=== PATIENT | male | born 1985 | race African-American/Black ===

== ENCOUNTER 2024-03-27 13:38 | Outpatient (REF) | payer MEDICAID, SELFPAY ==
[2024-03-27 14:14] LABS: MANUAL DIFF FLAG NO
[2024-03-27 14:27] LABS: Basophils Percent Auto 0.7 % (0-2); Hematocrit 45.2 % (42.0-52.0); Hemoglobin 14.3 g/dl (14.0-18.0); Imm Gran Abs Auto 0.01 X10*3/uL (0.00-0.03); Imm Gran Pct Auto 0.2 % (0.0-0.4); Lymphocytes Percent Auto 24.6 % (20-40); Mean Corpuscular HGB Conc 31.6 g/dl (31.0-36.0); Mean Corpuscular Hemoglobin 27.1 pg (27.0-33.0); Mean Corpuscular Volume 85.8 fL (80.0-98.0); Monocytes Absolute Auto 0.8 X10*3/uL (0.1-1.2); Monocytes Percent Auto 18.8 % (2-11); Neutrophils Absolute Auto 2.3 x10*3/uL (2.0-8.3); Neutrophils Percent Auto 54.7 % (45-73); Platelet Count 247 X10*3/uL (160-400); Red Blood Count 5.27 X10*6/uL (4.60-5.80); Red Cell Distribution Width 14.1 % (11.0-16.0); White Blood Count 4.2 X10*3/uL (4.8-10.8)
--- OUTSIDE RECORDS SUMMARY | 2024-03-27 14:39 | XMS_ITS | Encounter Summary ---
Author Organization [employer] Address [address] [facility] 7[address] [place] [address] Care Team Providers Care Nanoelectronics Engineer Name Role Phone Sam Palm MD Primary Care Prov ider Reason for Visit * Reason Onset Date Comments Appointment Request 05/12/2023 Encounter Details Date Type Department Care Team (Late st Contact Info) Description 05/12/2023 Telephone [facility] [address] [place] [address] Sam Palm MD [address] [place] [phone] Appointment Request Social History Tobacco Use Types Packs/Day Years Used Date Smoking Tobacco: Never Smokeless Tobacco: Never Depression Answer Date Recorded Patient Health Questionnaire-9 Score 0 04/11/2023 Patient Health Questionnaire-9 Score 0 04/11/2023 Last PHQ-9: Questionnaire Data Not on file 0 04/11/2023 Housing Stability Answer Date Recorded What is your housing situation today? I have david benedict 04/11/[address] you li ve. Do you have problems with any of the following? None of the above 04/11/2023 Food Insecurity Answer Date Recorded Within the past 12 months, y ou worried that your food would run out before you got money to buy more: Never True 04/11/2023 Within the past 12 months,th e food you bought just didn't last and you didn't have enough money to get more: Never True 05/2023 Transportation Answer Date Recorded In the past 12 months, has l ack of transportation kept you from medical appts, meetings, work or from getting things needed for daily living? No 04/11/2023 Utilities Answer Date Recorded In the past 12 months, has t he electric, gas, oil or water company threatened to shut off services in your home? No 04/11/2023 Depression Answer Date Recorded Patient Health Questionnaire-2 Score 0 04/11/2023 Sex and Gender Information Value Date Recorded Sex Assigned at Male 12/07/2021 10:26 AM EDT Legal Sex Male 10:26 AM EDT Gender Identity Male 12/07/2021 10:26 AM EDT Sexual Orientation Straight 12/07/2021 10 :26 AM EDT documented as of this encounter Miscellaneous Notes * Telephone Encounter - Anuel Rosario - 05/12/2023 11:50 AM EDT Tc from patient calling to cancel appt for 05/17 and would like a call back to reschedule documented in this encounter Plan of Treatment Upcoming Encounters Date Type Department Care Team (Late st Contact Info) Description 04/24/2024 3:00 PM EDT Clinical Support [facility] [address] [place] [address] documented as of this encounter Visit Diagnoses Not on filedocumented in this encounter Additional Health Concerns Assessment Noted Time PHQ-9 Depression Total Score: 0 04/11/19 24 9:27 AM EST documented as of this encounter Care Teams Nanoelectronics Engineer Relationship Specialty Start Date End Date Sam Palm MD [address] [place] [address] PCP - General Internal Medicine 06/26/19 documented as of this encounter
--- OUTSIDE RECORDS SUMMARY | 2024-03-27 14:39 | XMS_ITS | Clinical Summary ---
Author Organization [employer] Address [address] [facility] 7t [place] [address] Care Team Providers Care Data Entry Technician Name Role Phone Sam Palm MD Primary Care Prov ider Allergies No known active allergies Medications cyclobenzaprine (Flexeril) 10 MG tablet Take 1 tablet (10 mg) by mouth 3 times daily for 10 days. 30 tablet 4 Active triamcinolone (Kenalog) 0.025 % ointment Apply topically 2 times daily. 30 g 11 4 Active losartan (Cozaar) 50 MG tablet Take 1 tablet (50 mg) by mouth in the morning. 90 tablet 3 4 06/28/19 25 Active ibuprofen 600 MG tablet Take 1 tablet (600 mg) by mouth every 8 (eight) hours if needed for mild pain. 90 tablet 4 Active oseltamivir (Tamiflu) 75 MG capsuleIndicati ons:Influenza B Take 1 capsule (75 mg) by mouth 2 times daily for 5 days. 10 capsule 5 04/01/19 25 Active Active Problems Problem Noted Date Diagnosed Date Benign essential hypertension 01/05/2018 Assessment & Plan (10/04/2023 3:09 PM EDT): Controlled, no changes will be made, keep low sodium diet and exercise as tolerated, told to get blood work previously ordered, will follow up in 4 months Assessment & Plan (06/29/2023 9:28 AM EDT): Controlled, continue low sodium diet and exercise as tolerated, follow up in 4 months Eczema 01/05/2018 Encounters Date Type Department Care Team Description 03/27/2024 1:00 PM EST Office Visit [facility] [address] [place] [address] Bekah Ritter MD Influenza B (Primary Dx); Benign essential hypertension; Other fatigue 03/27/2024 Travel 03/27/2024 Telephone [facility] [address] [place] [address] Sam Palm MD Nurse Triage 01/09/2024 Refill [facility] [address] [place] [address] Sam Palm MD from Last 3 Months Immunizations Name Administration Dates Next Due Influenza injectable quadriv alent IIV4 with preservative 03/15/2017 Influenza injectable quadriv alent preservative free 04/09/2016,05/09/2015 Influenza, IIV3, injectable 11/28/2013,1 02/19/2012,01/17/2012,2010,12/03/2009 Pfizer Covid-19 Vaccine 12+ 02/12/2021,,05/07/2020 Pfizer Covid-19 Vaccine 12+ Bivalent 02/02/2022 TD (adult), 2 Lf tetanus tox oid, preservative free, adsorbed 11/24/2010 Tdap 07/16/2016 Social History Tobacco Use Types Packs/Day Years Used Date Smoking Tobacco: Never Smokeless Tobacco: Never Tobacco Cessation:Counseling Given: Not Answered Alcohol Use Standard Drinks/Week Comments Never 0 (1 standard drink = 0.6 oz pur e alcohol) Depression Answer Date Recorded Patient Health Questionnaire-9 [...] Orientation Straight 12/07/2021 10 :26 AM EDT Last Filed Vital Signs Vital Sign Reading Time Taken Comments Blood Pressure 146/96 03/27/2024 12:45 PM EST Pulse 88 03/27/2024 12:45 PM EST Temperature 36.9 ??C (98.4 ??F) 03/27/2024 12:[address] Respiratory Rate 20 03/27/2024 12:45 PM EST Oxygen Saturation 98% 03/27/2024 12:45 PM EST Inhaled Oxygen Concentration - - Weight 128 kg (282 lb 6.4 oz) 03/27/2024 12:45 P M EST Height 175.3 cm (5' 9 ) 03/27/2024 12:45 PM EST Body Mass Index 41.7 03/27/2024 12:45 PM EST Plan of Treatment Upcoming Encounters Date Type Department Care Team (Late st Contact Info) Description 04/24/2024 3:00 PM EDT Clinical Support [facility] [address] [facility] [place] [address] Health Maintenance Due Date Last Done Comments HIV Screening 1987 Lipid Panel 1987 Alcohol/Substance Use Screening 1999 Family Planning (PISQ) 2002 Hepatitis C Screening 2005 Hepatitis B Vaccines (1 of 3 - 19+ 3-dose series) 2006 COVID-19 Vaccine ( season) 2023 02/02/2022, 02/12/2021, 05/29/2020, Additional history exists Influenza Vaccine (#1) 2023 8, 04/09/2016, 05/09/2015, Additional history exists Depression Screening 04/10/2024 04/11/2023, 04/11/19 24 SDOH Screening 04/10/2024 04/11/2023 Tobacco Screening 03/27/2025 03/27/2024 DTaP/Tdap/Td Vaccines (2 - Td or Tdap) 07/16/2026 07/16/2016, 11/24/2010, 11/24/2010 Zoster Vaccines (1 of 2) 2037 RSV Patients and Patients Aged 60 years or older (1 - 1-dose 75+ series) 2062 HIB Vaccines Aged Out No longer eligi ble based on patient's age to complete this topic HPV Vaccines Aged Out No longer eligi ble based on patient's age to complete this topic Hepatitis A Vaccines Aged Out No long er eligible based on patient's age to complete this topic IPV Vaccines Aged Out No longer eligi ble based on patient's age to complete this topic Meningococcal Vaccine Aged Out No ailyn cortez eligible based on patient's age to complete this topic Pneumococcal Vaccine: Pediatrics (0 to 5 Years) and At-Risk Patients (6 to 49) Years) Aged Out No longer eligible based on patient's age to complete this topic RSV under 20 months Aged Out No longe r eligible based on patient's age to complete this topic Rotavirus Vaccines Aged Out No longer eligible based on patient's age to complete this topic Procedures Procedure Name Priority Date/Time Associated Diagnosis Comments CBC WITH AUTO DIFFERENTIAL Routine 03/27/2024 1:44 PM EST Benign essential hypertension Other fatigue POCT RAPID STREP A Routine 03/27/2024 1: 16 PM EST Influenza B Benign essential hypertension Other fatigue POCT INFLUENZA B Routine 03/27/2024 1:15 PM EST Influenza B Benign essential hypertension Other fatigue POCT INFLUENZA A Routine 03/27/2024 1:15 PM EST Influenza B Benign essential hypertension Other fatigue POCT COVID-19 AG QUICK ID NOW Routine 03/27/2024 1:14 PM EST Influenza B Benign essential hypertension Other fatigue from Last 3 Months Results * (ABNORMAL) CBC auto differential (03/27/2024 1:44 PM EST) White Blood Count 4.2(L) 4.8 - 10.8 X10*3/uL [facility] Red Blood Count 5.27 4.60 - 5.80 X10*6/uL [facility] Hemoglobin 14.3 14.0 - 18.0 g/dl [facility] Hematocrit 45.2 42.0 - 52.0 % [facility] Mean Corpuscular Volume 85.8 80.0 - 98.0 fL [facility] Mean Corpuscular Hemoglobin 27.1 27.0 - 33.0 pg [facility] Mean Corpuscular HGB Conc 31.6 31.0 - 36.0 g/dl [facility] Red Cell Distribution Width 14.1 11.0 - 16.0 % [facility] Platelet Count 247 160 - 400 X10*3/uL [facility] Mean Platelet Volume 10.0 9.4 - 12.4 fL [facility] Neutrophils Percent Auto 54.7 45 - 73 % [facility] Imm Gran Pct Auto 0.2 0.0 - 0.4 % [facility] Lymphocytes Percent Auto 24.6 20 - 40 % [facility] Monocytes Percent Auto 18.8(H) 2 - 11 % [facility] Eosinophils Percent Auto 1.0 0 - 4 % [facility] Basophils Percent Auto 0.7 0 - 2 % [facility] NRBC Pct Auto 0.0 0.0 - 0.2 /100WBC [facility] Neutrophils Absolute Auto 2.3 2.0 - 8.3 x10*3/uL [facility] Imm Gran Abs Auto 0.01 0.00 - 0.03 X10*3/uL [facility] Lymphocytes Absolute Auto 1.0(L) 1.2 - 4.9 X10*3/uL [facility] Monocytes Absolute Auto 0.8 0.1 - 1.2 X10*3/uL [facility] Eosinophils Absolute Auto 0.0 0.0 - 0.4 X10*3/uL [facility] Basophils Absolute Auto 0.0 0.0 - 0.2 X10*3/uL [facility] NRBC Abs Auto 0.000 0.0 - 0.012 X10*3/uL [facility] Blood Venous blood specimen / Unknown 03/27/2024 1:44 PM EST 03/27/2024 2:12 PM EST Result [facility] Bekah Ritter MD LAB BLOOD ORDERABLES Final Result Performing Organization Address City/State/[facility] Co de Phone Number [facility] [address] [place] [phone] * POCT Rapid Strep A OSOM (03/27/2024 1:16 PM EST) Pathologist [facility] Rapid Strep A Screen Negative Negative, None Detected QC Media Lot # [id number] Lot# Expiration Date Swab 03/27/2024 1:16 PM EST Result [facility] Bekah Ritter MD POINT OF CARE TEST ENTER/ED IT ORDERABLES Final Result * (ABNORMAL) POCT Rapid Influenza B OSOM (03/27/2024 1:15 PM EST) Rapid Influenza B Ag Positive( A) Negative, Indeterminate QC Media Lot # [id number] Lot# Expiration Date , Swab 03/27/2024 1:15 PM EST Bekah Ritter MD POINT OF CARE TEST ENTER/ED IT ORDERABLES Final Result * POCT Rapid Influenza A OSOM (03/27/2024 1:15 PM EST) Pathologist [facility] Rapid Influenza A Ag Negative Negative, Indeterminate QC Media Lot # [id number] Lot# Expiration Date [id number] Swab Nasopharyngeal structure / Unknown 03/27/2024 1:15 PM EST Bekah Ritter MD POINT OF CARE TEST ENTER/ED IT ORDERABLES Final Result * POCT Rapid Covid-19 QUICK ID NOW (03/27/2024 1:14 PM EST) [facility] Coronavirus Antigen PCR Negative Negative, Indeterminate, None Detected, Invalid, Specimen unsatisfactory for evaluation, Weakly Positive QC Media Lot # [id number] Lot# Expiration Date [id number] Swab 03/27/2024 1:14 PM EST Bekah Ritter MD POINT OF CARE TEST ENTER/ED IT ORDERABLES Final Result from Last 3 Months Insurance # [address] [place] [address] [facility] [address] [place] [address] # [address] [place] [address] [address] [place] [address] Care Teams Data Entry Technician Relationship Specialty Start Date End Date Sam Palm MD [address] [place] [phone] PCP - General Internal Medicine 06/26/19
--- OUTSIDE RECORDS SUMMARY | 2024-03-27 14:39 | XMS_ITS | Encounter Summary ---
Author Organization [employer] Address [address] [facility] 7t [place] [address] Care Team Providers Care Senior Manager [employer] Name Role Phone Sam Palm MD Primary Care Prov ider Reason for Visit * Reason Comments Cough Fatigue Encounter Details Date Type Department Care Team ([facility] st Contact Info) Description 03/27/2024 1:00 PM EST Office Visit [facility] [address] [place] [address] Bekah Ritter MD [address] [place] [address] Influenza B (Primary Dx); Benign essential hypertension; Other fatigue Social History Tobacco Use Types Packs/Day Years Used Date Smoking Tobacco: Never Smokeless Tobacco: Never Alcohol Use Standard Drinks/Week Comments Never 0 [...] AM EDT documented as of this encounter Last Filed Vital Signs Vital Sign Reading [...] Mass Index 41.7 03/27/2024 12:45 PM EST documented in this encounter Progress Notes * Bekah Ritter MD - 03/27/2024 1:00 PM EST Subjective Patient ID: Armen [place] is a 39 y.o. male who presents for Cough and Fatigue. Cough This is a new problem. The current episode started in the past 7 days. The cough is Non-productive.Pertinent negatives include no shortness of breath. Fatigue Associated symptoms include coughing and fatigue. 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 C/o cough x the last 4 days. No fever. Denies body aches. Also c/o fatigue for several weeks. Pt would like to check some vit Levels to assess if he need to start a MTV supplementation. Patient Active Problem List Diagnosis Benign essential hypertension Eczema ' Current Outpatient Medications on File Prior to Visit Medication Sig Dispense Refill cyclobenzaprine (Flexeril) 10 MG tablet Take 1 tablet (10 mg) by mouth 3 times daily for 10 days. 30 tablet 0 ibuprofen 600 MG tablet Take 1 tablet (600 mg) by mouth every 8 (eight) hours if needed for mild pain. 90 tablet 0 losartan (Cozaar) 50 MG tablet Take 1 tablet (50 mg) by mouth in the morning. 90 tablet 3 triamcinolone (Kenalog) 0.025 % ointment Apply topically 2 times daily. 30 g 11 No current facility-administered medications on file prior to visit. No Known Allergies Review of Systems Constitutional: Positive for fatigue. Respiratory: Positive for cough. Negative for shortness of breath. Cardiovascular: Negative for palpitations and leg swelling. Objective Physical Exam Constitutional: General: He is not in acute distress. Appearance: Normal appearance. He is obese. He is not ill-appearing, toxic- appearing or diaphoretic. HENT: Nose: Right Turbinates: Enlarged. Left Turbinates: Enlarged. Pulmonary: Effort: Pulmonary effort is normal. Breath sounds: Normal breath sounds. No stridor. No rhonchi. Neurological: General: No focal deficit present. Mental Status: He is alert. Assessment/Plan Diagnoses and all orders for this visit: Influenza B Comments: fluids, Rest, wear a mask when around people. Call the office if the sx are not resolved in 1 week. Orders: - POCT Rapid Covid-19 QUICK ID NOW - POCT Rapid Influenza A OSOM - POCT Rapid Influenza B OSOM - POCT Rapid Strep A OSOM - TSH W/Reflex to FT4; Future - Vitamin D, 25-Hydroxy, Total, Immunoassay; Future - Vitamin B12/Folate, Serum Panel; Future - oseltamivir (Tamiflu) 75 MG capsule; Take 1 capsule (75 mg) by mouth 2 times daily for 5 days. Benign essential hypertension Comments: DASH diet Same medication BP check w/ a nurse in 1 month. Orders: - POCT Rapid Covid-19 QUICK ID NOW - POCT Rapid Influenza A OSOM - POCT Rapid Influenza B OSOM - POCT Rapid Strep A OSOM - TSH W/Reflex to FT4; Future - Vitamin D, 25-Hydroxy, Total, Immunoassay; Future - Vitamin B12/Folate, Serum Panel; Future - CBC auto differential; Future - Comprehensive Metabolic Panel; Future Other fatigue Comments: Labs ordered. Pt will be contacted w/ results. Orders: - POCT Rapid Covid-19 QUICK ID NOW - POCT Rapid Influenza A OSOM - POCT Rapid Influenza B OSOM - POCT Rapid Strep A OSOM - TSH W/Reflex to FT4; Future - Vitamin D, 25-Hydroxy, Total, Immunoassay; Future - Vitamin B12/Folate, Serum Panel; Future - CBC auto differential; Future - Comprehensive Metabolic Panel; Future documented in this encounter Plan of Treatment Upcoming Encounters Date Type Department Care Team (Late st Contact Info) Description 04/24/2024 3:00 PM EDT Clinical Support [facility] [address] [place] [address] Scheduled Orders Name Type Priority Associated Diagnoses Orde r Schedule TSH W/Reflex to FT4 Lab Routine Influenza B Benign essential hypertension Other fatigue Expected: 03/27/2024 (Approximate), Expires: 03/27/2025 Vitamin D, 25-Hydroxy, Total, Immunoassay Lab Routine Influenza B Benign essential hypertension Other fatigue Expected: 03/27/2024 (Approximate), Expires: 03/27/2025 Vitamin B12/Folate, Serum Panel Lab Routine Influenza B Benign essential hypertension Other fatigue Expected: 03/27/2024, Expires: 03/27/2025 Comprehensive Metabolic Panel Lab Routine Benign essential hypertension Other fatigue Expected: 03/27/2024 (Approximate), Expires: 03/27/2025 documented as of this encounter Procedures Procedure Name Priority Date/Time Associated Diagnosis [...] Influenza B Benign essential hypertension Other fatigue documented in this encounter Results * (ABNORMAL) CBC auto differential (03/27/2024 1:44 PM EST) White Blood Count 4.2(L) 4.8 - 10.8 X10*3/uL [facility] Red Blood Count 5.27 4.60 - 5.80 X10*6/uL [facility] Hemoglobin 14.3 14.0 - 18.0 g/dl [facility] Hematocrit 45.2 42.0 - 52.0 % [facility] Mean Corpuscular Volume 85.8 80.0 - 98.0 fL [facility] Mean Corpuscular Hemoglobin 27.1 27.0 - 33.0 pg [facility] Mean Corpuscular HGB Conc 31.6 31.0 - 36.0 g/dl [facility] Red Cell Distribution Width 14.1 11.0 - 16.0 % [facility] Platelet Count 247 160 - 400 X10*3/uL [facility] Mean Platelet Volume 10.0 9.4 - 12.4 fL [facility] Neutrophils Percent Auto 54.7 45 - 73 % [facility] Imm Gran Pct Auto 0.2 0.0 - 0.4 % [facility] Lymphocytes Percent Auto 24.6 20 - 40 % [facility] Monocytes Percent Auto 18.8(H) 2 - 11 % [facility] Eosinophils Percent Auto 1.0 0 - 4 % [facility] Basophils Percent Auto 0.7 0 - 2 % [facility] NRBC Pct Auto 0.0 0.0 - 0.2 /100WBC [facility] Neutrophils Absolute Auto 2.3 2.0 - 8.3 x10*3/uL [facility] Imm Gran Abs Auto 0.01 0.00 - 0.03 X10*3/uL [facility] Lymphocytes Absolute Auto 1.0(L) 1.2 - 4.9 X10*3/uL [facility] Monocytes Absolute Auto 0.8 0.1 - 1.2 X10*3/uL [facility] Eosinophils Absolute Auto 0.0 0.0 - 0.4 X10*3/uL [facility] Basophils Absolute Auto 0.0 0.0 - 0.2 X10*3/uL [facility] NRBC Abs Auto 0.000 0.0 - 0.012 X10*3/uL [facility] Blood Venous blood specimen / Unknown 03/27/2024 1:44 PM EST 03/27/2024 2:12 PM EST Result [facility] Bekah Ritter MD LAB BLOOD ORDERABLES Final Result Performing Organization Address City/State/[facility] Co de Phone Number [facility] [address] [place] [phone] * POCT Rapid Strep A OSOM (03/27/2024 1:16 PM EST) [facility] Rapid Strep A Screen Negative Negative, None Detected QC Media Lot # [id number] Lot# Expiration Date 2, Swab 03/27/2024 1:16 PM EST Result [facility] Bekah Ritter MD POINT OF CARE TEST ENTER/ED IT ORDERABLES Final Result * (ABNORMAL) POCT Rapid Influenza B OSOM (03/27/2024 1:15 PM EST) [facility] Rapid Influenza B Ag Positive( A) Negative, Indeterminate QC Media Lot # [id number] Lot# Expiration Date [id number] Swab 03/27/2024 1:15 PM EST Result [facility] Bekah Ritter MD POINT OF CARE TEST ENTER/ED IT ORDERABLES Final Result * POCT Rapid Influenza A OSOM (03/27/2024 1:15 PM EST) [facility] Rapid Influenza A Ag Negative Negative, Indeterminate QC Media Lot # [id number] Lot# Expiration Date [id number] Swab Nasopharyngeal structure / Unknown 03/27/2024 1:15 PM EST Bekah Ritter MD POINT OF CARE TEST ENTER/ED IT ORDERABLES Final Result * POCT Rapid Covid-19 QUICK ID NOW (03/27/2024 1:14 PM EST) Coronavirus Antigen PCR Negative Negative, Indeterminate, None Detected, Invalid, Specimen unsatisfactory for evaluation, Weakly Positive QC Media Lot # [id number] Lot# Expiration Date [id number] Swab 03/27/2024 1:14 PM EST Bekah Ritter MD POINT OF CARE TEST ENTER/ED IT ORDERABLES Final Result documented in this encounter Visit Diagnoses Diagnosis Influenza B- Primary Influenza with other respiratory manifestations Benign essential hypertension Essential hypertension, benign Other fatigue documented in this encounter Additional Health Concerns Assessment Noted Time PHQ-9 Depression Total Score: 0 04/11/19 24 9:27 AM EST documented as of this encounter Care Teams Senior Manager [employer] Relationship Specialty Start Date End Date Sam [place] MD [address] [place] [phone] PCP - General Internal Medicine 06/26/19 documented as of this encounter
--- OUTSIDE RECORDS SUMMARY | 2024-03-27 14:39 | XMS_ITS | Encounter Summary ---
Author Organization [employer] Address [address] 7[address] [place] [address] Care Team Providers Care Organic Gardening Teacher Name Role Phone aSm [place] MD Primary Care Prov ider Encounter Details Date Type Department Care Team (Latest Contact Info) Description 03/27/2024 Travel Social History Tobacco Use Types Packs/Day Years [...] AM EDT documented as of this encounter Plan of Treatment Upcoming Encounters Date Type Department Care Team ([facility] st Contact Info) Description 04/24/2024 3:00 PM EDT Clinical Support [facility] [address] [place] [address] documented as of this encounter Visit Diagnoses Not on filedocumented in this encounter Additional Health Concerns Assessment Noted Time PHQ-9 Depression Total Score: 0 04/11/19 24 9:27 AM EST documented as of this encounter Care Teams Organic Gardening Teacher Relationship Specialty Start Date End Date Sam [place] MD [address] [place] [address] PCP - General Internal Medicine 06/26/19 documented as of this encounter
--- OUTSIDE RECORDS SUMMARY | 2024-03-27 14:39 | XMS_ITS | Encounter Summary ---
Author Organization [employer] Address [address] [facility] [address] [place] [address] Care Team Providers Care Assembler Garment Form Name Role Phone Sam Palm MD Primary Care Prov ider Reason for Visit * Reason Onset Date Comments Nurse Triage 03/27/2024 Encounter Details Date Type Department Care Team ([facility] st Contact Info) Description 03/27/2024 Telephone [facility] [address] [place], [place] [id number] Sam Palm MD [address] [place] [address] Nurse Triage Social History Tobacco Use Types Packs/Day Years [...] encounter Miscellaneous Notes * Telephone Encounter - Mónica Braun RN - 03/27/2024 9:24 AM EST Call returned to Armen Walker to triage below. Reports having onset of cough since x 4 weeks. Call transferred to spouse. Reports cough is productive. Pt reports using OTC meds with no relief. Subjective fever, chest congestion. Pt has not been seen at or ER for sx. No OTC COVID-19 testing. Mild intermittent wheezing. Advised of disposition, agrees to sick on site with team provider. Reviewed home care advise, ER precautions and reasons to call back. Protocol Used: Cough (Adult) Protocol-Based Disposition: Go to Office or Video Visit Now Future Appointments Date Time Provider Department Center 03/27/2024 1:00 PM Bekah Ritter MD [facility] Insurance verified as active per Real Time Eligibility in [facility]. Video visit offer not recorded Positive Triage Question: * Wheezing is present * All higher-acuity triage questions were negative Care Advice Discussed: * Reassurance and Education - Cough * Cough Medicines * Reasons To Call Back - Difficulty breathing - You become worse * Telephone Encounter - Darby Reynosonte - 03/27/2024 8:49 AM EST Symptom: Cough Outcome: Schedule an appointment to be seen within 24 hours Reason: Caller denied all higher acuity questions The caller accepted this outcome. Contact pt at [phone] documented in this encounter Plan of Treatment Upcoming Encounters Date Type Department Care Team ([facility] st Contact Info) Description 04/24/2024 3:00 PM EDT Clinical Support [facility] [address] [place] [address] documented as of this encounter Visit Diagnoses Not on filedocumented in this encounter Additional Health Concerns Assessment Noted Time PHQ-9 Depression Total Score: 0 04/11/19 24 9:27 AM EST documented as of this encounter Care Teams Assembler Garment Form Relationship Specialty Start Date End Date Sam Palm MD [address] [place] [address] PCP - General Internal Medicine 06/26/19 documented as of this encounter
--- OUTSIDE RECORDS SUMMARY | 2024-03-27 14:39 | XMS_ITS | Encounter Summary ---
Author Organization [employer] Address [address] [facility] [address] [place] [address] Care Team Providers Care Extension Service Advisor Name Role Phone Sam Palm MD Primary Care Prov ider Reason for Visit * Reason Onset Date Comments Medication Question 04/15/2023 Encounter Details Date Type Department Care Team (Late st Contact Info) Description 04/15/2023 Telephone [facility] [address] [place] [address] Sam Palm MD [address] [place] [id number] Medication Question Social History Tobacco Use Types Packs/Day Years [...] encounter Miscellaneous Notes * Telephone Encounter - Cassie Alvarez - 04/15/2023 11:34 AM EST Tc from pt requesting a new script for ibuprofen states see discussed with PCP on 04/11/23 leg pain. Ripsawyer did advised PCP sent cyclobenzaprine (Flexeril) 10 MG tablet for 10 days. 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 documented in this encounter Plan of Treatment Upcoming Encounters Date Type Department Care Team (Late st Contact Info) Description 04/24/2024 3:00 PM EDT Clinical Support [facility] [address] [place] [address] documented as of this encounter Visit Diagnoses Not on filedocumented in this encounter Additional Health Concerns Assessment Noted Time PHQ-9 Depression Total Score: 0 04/11/19 24 9:27 AM EST documented as of this encounter Care Teams Extension Service Advisor Relationship Specialty Start Date End Date Sam Palm MD [address] [place] [address] PCP - General Internal Medicine 06/26/19 documented as of this encounter
--- OUTSIDE RECORDS SUMMARY | 2024-03-27 14:39 | XMS_ITS | Clinical Summary ---
Author Organization [facility] ity Address [address] [place] [address] Care Team Providers Care Embedded Software Architect Name Role Phone Unavailable Primary Care Provider Unavailabl e Social History Tobacco Use Types Packs/Day Years Used Date Smoking Tobacco: Never Assessed Sex and Gender Information Value Date Recorded Sex Assigned at Not on file Legal Sex Male 2:52 PM EST Gender Identity Not on file Sexual Orientation Not on file Plan of Treatment Health Maintenance Due Date Last Done Comments DTaP,Tdap,and Td Vaccines (1 - Tdap) 2006 Hepatitis B Vaccines (1 of 3 - 19+ 3-dose series) 2006 Cholesterol Screening (Lipid Panel) 10/03/2023 Depression Screening 10/03/2023 HIV Screening 10/03/2023 Hepatitis C Screening 10/03/2023 Hypertension/CHF/CAD Annual BMP Blood Test 10/03/2023 Social Influencers of Health Screening 10/03/2023 COVID-19 Vaccine ( - 2023-2 5 season) 2023 Influenza Vaccine (#1) 2023 HIB Vaccines Aged Out No longer eligi [...] on patient's age to complete this topic MMR Vaccines Aged Out No longer eligi ble based on patient's age to complete this topic Meningococcal ACWY Vaccine Aged Out N o longer eligible based on patient's age to complete this topic Meningococcal B Vacine Aged Out No lo nger eligible based on patient's age to complete this topic Pneumococcal Vaccine: Pediat rics (0 to 5 Years) and At-Risk Patients (6 to 64 Years) Aged Out No longer eligible b ased on patient's age to complete this topic RSV Immunization Patients Un quinn 20 months Aged Out No longer eligible b ased on patient's age to complete this topic Varicella Vaccines Aged Out No longer eligible based on patient's age to complete this topic
[2024-03-27 15:33] LABS: Folate 9.8 ng/mL (> or = 4.0); Vitamin B12 446 pg/mL (200-900)
[2024-03-27 16:05] LABS: Alanine Aminotransferase 27 U/L (0-40); Albumin Level 3.9 g/dL (3.5-5.0); Alkaline Phosphatase 101 U/L (39-117); Anion Gap 10 (12-20); Aspartate Amino Transferase 29 U/L (5-37); Bilirubin Total 0.4 mg/dL (0.0-1.0); Blood Urea Nitrogen 9 mg/dL (9-16); Calcium 8.6 mg/dL (8.4-10.2); Carbon Dioxide 23 mmol/L (22-29); Chloride 108 mmol/L (96-108); Estimated Glomerular Filt Rate > 60; Glucose Random 96 mg/dL (60-115); Potassium 3.9 mmol/L (3.3-5.1); Sodium 137 mmol/L (135-145)
[2024-03-27 16:20] LABS: TSH reflex Free T4 1.18 uIU/mL (0.32-4.0); Vitamin D 25-OH Total 10.2 ng/mL (>30)
== END 2024-03-27 13:39 | disposition home or self-care (01) ==
LOC: HO.CHCLDS 13:38
PROVIDERS: Visit Provider Internal Medicine
DX: I10 Essential (primary) hypertension (principal); J10.1 Influenza due to other identified influenza virus with other respiratory manifestations; R53.83 Other fatigue
CPT/HCPCS: 36415; 80053; 82306; 82607; 82746; 84443; 85025